=== PATIENT | female | born 1960 | race Hispanic/Latino ===

== ENCOUNTER → 2018-09-27 | Outpatient (CLI) | payer OTHER | END | disposition home or self-care (01) | LOC: RAH 13:26 | PROVIDERS: ATTEND Nurse Practitioner Adult Health | DX: Z13.6 Encounter for screening for cardiovascular disorders (principal) | CPT/HCPCS: 75571 ==

== ENCOUNTER → 2023-01-12 | Outpatient (CLI) | payer OTHER | END | disposition home or self-care (01) | LOC: RAH 09:59 | PROVIDERS: ATTEND Nurse Practitioner Adult Health | DX: Z13.6 Encounter for screening for cardiovascular disorders (principal) | CPT/HCPCS: 75571 ==

== ENCOUNTER 2024-11-16 21:52 | Emergency (ER) | payer OTHER ==
[~2024-11-16] VITALS: Ht 162.6 cm; Wt 70.3 kg
--- NOTE | 2024-11-16 21:57 | NUR ---
CALLED FOR EKG
--- NOTE | 2024-11-16 21:57 | NUR ---
UA CIP PROVIDED
[2024-11-16 22:45] LABS: BASOPHILS # (AUTO) 0.05 K/uL (0.00-0.20); BASOPHILS % (AUTO) 0.5 % (0.0-5.0); EOSINOPHILS # (AUTO) 0.06 K/uL (0.00-0.70); EOSINOPHILS % (AUTO) 0.6 % (0.0-8.0); HEMATOCRIT 36.5 % (36-48); IMMATURE GRANULOCYTE ABSOLUTE 0.04 K/uL (0-1); LYMPHOCYTES # (AUTO) 1.9 K/uL (1.0-4.8); LYMPHOCYTES % (AUTO) 19.9 % (21.0-51.0); MEAN CORPUSCULAR HEMOGLOBIN 31.9 pg (27.0-33.0); MEAN CORPUSCULAR HGB CONC 34.5 g/dL (32.0-36.0); MEAN CORPUSCULAR VOLUME 92.4 fL (79-99); MONOCYTES # (AUTO) 0.9 K/uL (0.1-1.0); MONOCYTES % (AUTO) 9.4 % (3.0-13.0); NEUTROPHILS # (AUTO) 6.5 K/uL (1.8-7.7); NEUTROPHILS % (AUTO) 69.2 % (40.0-77.0); PLATELET COUNT (AUTO) 357 K/uL (130-400); RED BLOOD CELL COUNT(AUTO) 3.95 MIL/uL (4.00-5.50); RED CELL DISTRIBUTION WIDTH 14.6 % (11.0-15.5); WHITE BLOOD COUNT (AUTO) 9.4 K/uL (4.8-10.8)
[2024-11-16 22:49] LABS: ADD UA MICROSCOPIC YES; APPEARANCE,URINE CLEAR (CLEAR); BILIRUBIN,URINE NEGATIVE (NEGATIVE); COLOR,URINE LIGHT-YELLOW (YELLOW); GLUCOSE, URINE (UA) NEGATIVE (NEGATIVE); KETONES,URINE NEGATIVE (NEGATIVE); LEUKOCYTE ESTERASE ,URINE 500 Leu/uL (NEGATIVE); NITRATE,URINE NEGATIVE (NEGATIVE); OCCULT BLOOD,URINE NEGATIVE (NEGATIVE); PROTEIN,URINE NEGATIVE (NEGATIVE)
[2024-11-16 22:51] LABS: SQUAMOUS EPITHELIAL CELL,UR RARE /HPF (0-2)
[2024-11-16 22:58] LABS: CREATININE 0.9 mg/dL (0.5-1.0); POTASSIUM 3.1 mmol/L (3.5-5.1)
--- NOTE | 2024-11-16 23:10 | ERN ---
General Chief Complaint: Shortness of Breath Stated Complaint: SOB Time Seen by MD: 21:55 Source: patient, family History of Present Illness Initial Comments Patient is a 63-year-old female with numerous complaints the major one however is heart palpitations that have been starting over the last several months and increasing in frequency. When she has these palpations she is weak dizzy can not even walk can not even stand up. Currently she is in normal sinus rhythm and fine. Additional symptoms associated with these attacks are blurry vision emesis and headache. She went to see her primary care doctor who diagnosed her with SVT and recommended she come to the ED. Allergies: Coded Allergies: No Known Allergies (Unverified Allergy, Unknown, 11/16/24) Past Medical History Past Medical History: High Cholesterol, Other Medical History Other: POOR HISTORIAN Past Surgical History: Other Surgical History Other: TUMMY TUCK Constitutional: (+) weakness EENTM: (+) blurred vision Cardiovascular: (+) palpitations Gastrointestinal/Abdominal: (+) nausea, (+) vomiting Musculoskeletal: (+) Neck pain, (+) back pain Neuro: (+) headache Physical Exam General Appearance: (+) mild distress Orientation: (+) alert Eye: bilateral eye normal inspection, bilateral eye PERRL, bilateral eye EOMI Ear, Nose, Throat: (+) hearing grossly normal, (+) normal ENT inspection, (+) moist mucous membraine, (+) normal pharynx Neck: (+) normal inspection, (+) supple, (+) tender Respiratory: (+) chest non-tender, (+) lungs clear, (+) well ventilated Respiratory Comment Left lower lobe posterior decreased breath sounds. Heart: (+) regular, (+) no gallop Vascular: (+) no edema, (+) normal peripheral pulse Gastrointestinal: (+) soft, (+) non-tender Gastrointestinal Comment Patient has been experiencing nausea and emesis and she says she has abdominal pain physical exam shows point tenderness on right lateral border of right rectus sheath Results Laboratory and Microbiology Lab and Micro Result Laboratory Tests Test 11/16/24 22:37 White Blood Count 9.4 K/uL (4.8-10.8) Red Blood Count 3.95 MIL/uL (4.00-5.50) L Hemoglobin 12.6 g/dL (12.0-16.0) Hematocrit 36.5 % (36-48) Mean Corpuscular Volume 92.4 fL (79-99) Mean Corpuscular Hemoglobin 31.9 pg (27.0-33.0) Mean Corpuscular Hemoglobin Concent 34.5 g/dL (32.0-36.0) Red Cell Distribution Width 14.6 % (11.0-15.5) Platelet Count 357 K/uL (130-400) Mean Platelet Volume 9.5 fL (7.5-10.5) Immature Granulocyte % (Auto) 0.4 % (0-1) Neutrophils (%) (Auto) 69.2 % (40.0-77.0) Lymphocytes (%) (Auto) 19.9 % (21.0-51.0) L Monocytes (%) (Auto) 9.4 % (3.0-13.0) Eosinophils (%) (Auto) 0.6 % (0.0-8.0) Basophils (%) (Auto) 0.5 % (0.0-5.0) Neutrophils # (Auto) 6.5 K/uL (1.8-7.7) Lymphocytes # (Auto) 1.9 K/uL (1.0-4.8) Monocytes # (Auto) 0.9 K/uL (0.1-1.0) Eosinophils # (Auto) 0.06 K/uL (0.00-0.70) Basophils # (Auto) 0.05 K/uL (0.00-0.20) Absolute Immature Granulocyte (auto 0.04 K/uL (0-1) Nucleated Red Blood Cells 0.0 % (0.0-0.19) Urine Color LIGHT-YELLOW (YELLOW) Urine Appearance CLEAR (CLEAR) Urine pH 7.0 (5.0-8.0) Urine Specific Stanley 1.015 (1.001-1.031) Urine Protein NEGATIVE mg/dL (NEGATIVE) Urine Glucose (UA) NEGATIVE mg/dL (NEGATIVE) Urine Ketones NEGATIVE mg/dL (NEGATIVE) Urine Occult Blood NEGATIVE (NEGATIVE) Urine Nitrate NEGATIVE (NEGATIVE) Urine Bilirubin NEGATIVE mg/dL (NEGATIVE) Urine Urobilinogen 2.0 mg/dL (0.2-1.0) H Urine Leukocyte Esterase 500 Marlene/uL (NEGATIVE) H Urine RBC 2-5 /HPF (0-1) H Urine WBC 6-10 /HPF (0-1) H Urine Squamous Epithelial Cells RARE /HPF (0-2) Urine Bacteria None /HPF (None Seen) Sodium Level 141 mmol/L (136-145) Potassium Level 3.1 mmol/L (3.5-5.1) L Chloride Level 101 mmol/L (101-111) Carbon Dioxide Level 30 mmol/L (21-32) Blood Urea Nitrogen 15 mg/dL (7-18) Creatinine 0.9 mg/dL (0.5-1.0) Glomerular Filtration Rate Calc 71 mL/min (>90) Random Glucose 118 mg/dL (70-105) H Total Calcium 9.2 mg/dL (8.5-10.1) Total Creatine Kinase 144 U/L (21-232) Troponin I High Sensitivity < 4 ng/L (4-50) L B-Type Natriuretic Peptide 8 pg/mL (0-100) MDM The usual labs have been ordered for shortness of breath and cardiac disease including troponins EKGs BNP is CBC chemistry panel a UA. I will add a chest x- ray. All laboratory studies and the chest x-ray are normal as well as EKG showing normal sinus rhythm with no ischemic changes. I will order a TSH level and give the patient a fluid bolus. After talking to the patient, she told me that her palpitations were diagnosed with a Holter monitor. She has an upcoming appointment in December to try medication management or possible ablation. I told the pt all her tests were normal. She was happy and would like to go home. I inquired about thyroid testing and her daughter told her it was normal. I have cancelled the TSH test and he IVF and will D/C the patient. ED Course Orders Procedure Category Date Status Time Vital Signs Per CPOE 11/16/24 Transmitted Routine 21:55 B-Type Natriuretic LAB 11/16/24 Complete Peptide 21:55 Chest 1vw RAD 11/16/24 Taken 21:55 12 Lead Ekg Tracing- EKG 11/16/24 Logged Technical 21:55 Oxygen By Nc/Pulse Ox CPOE 11/16/24 Transmitted 21:55 Maintain Iv CPOE 11/16/24 Transmitted 21:55 Iv Insertion CPOE 11/16/24 Transmitted 21:55 Cardiac Monitoring CPOE 11/16/24 Transmitted 21:55 Pulse Oximetry With CPOE 11/16/24 Transmitted Vs And Prn 21:55 Cbc With Differential LAB 11/16/24 Complete 21:55 Activity: Br W/Brp CPOE 11/16/24 Transmitted With Assist 21:55 Creatine Kinase, Total LAB 11/16/24 Complete 21:55 Troponin I High LAB 11/16/24 Complete Sensitivity 21:55 Urinalysis Profile LAB 11/16/24 Complete 21:55 Basic Metabolic Panel LAB 11/16/24 Complete 21:55 Culture Urine RENETTA 11/16/24 In Process 22:49 0.9%Nacl 1000ml (Ns PHA 11/17/24 Complete 1000ml) 00:30 Potassium Chl 10% PHA 11/17/24 Verified Elixir 20meq (Kcl 10% 01:00 Current Medications Medications (Trade) Dose Ordered Sig/Ac Route PRN Reason Start Time Stop Time Status Last Admin Dose Admin Sodium Chloride 1,000 ml @ 0 mls/hr ONCE ONCE IV 11/17/24 00:30 11/17/24 00:34 DC Vital Signs Date Time Temp Pulse Resp B/P (MAP) Pulse Ox O2 Delivery O2 Flow Rate FiO2 11/16/24 22:26 97.5 79 28 125/84 98 Room Air* 0 21 11/16/24 21:54 97.9 87 16 150/81 100 Room Air DX & DISP Disposition: Discharge Departure Impression: Primary Impression: SVT (supraventricular tachycardia) Condition: Stable Referrals: LAURITA CEDILLO [employer] (PCP) MARIELLE FELICIANO MD Nov 16, 2024 23:10
[2024-11-16 23:20] LABS: B-TYPE NATRIURETIC PEPTIDE 8 pg/mL (0-100)
[2024-11-17] MEDS ORDERED: 0.9%NACL 1000ML 1,000 ML IV ONE (00:30)
[2024-11-17] MEDS: 0.9%NACL 1000ML 1,000 ML IV SCH (01:43)
[2024-11-17] MEDS: PoTASSium chl 10% ELIXIR 20MEQ 20 MEQ/15 ML UDCUP PO ONE (01:43)
[2024-11-17 02:45] VITALS: BP 126/75; PULSE 73; RESP 14; TEMP 98.1; O2SAT 96
--- NOTE | 2024-11-17 08:25 | HMCIMG ---
PORTABLE CHEST RADIOGRAPH INDICATION: CHEST PAIN COMPARISON: None FINDINGS: Heart size is normal. The pulmonary vascularity and flip appear normal. No abnormal pulmonary parenchymal opacity or consolidation identified. Left hemidiaphragm is slightly elevated. No significant pleural effusion noted. No pneumothorax detected. IMPRESSION: No radiographic evidence for any acute cardiopulmonary process.
--- NOTE | 2024-11-17 09:04 | EKG ---
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
== END 2024-11-17 02:48 | disposition home or self-care (01) ==
LOC: EDH 21:52
DX: I47.10 Supraventricular tachycardia, unspecified (principal); E78.00 Pure hypercholesterolemia, unspecified; Z79.899 Other long term (current) drug therapy; Z98.890 Other specified postprocedural states
CPT/HCPCS: 99285; 71045; 84443; 82550; 84484; 80048; 83880; 85025; 87086; 81001; 36415 ×2; 93005; 96360; J7030

== ENCOUNTER 2025-05-28 11:52 | Day surgery (SDC) | payer OTHER ==
[2025-05-24 08:53] VITALS: BP 117/59; PULSE 73; RESP 14; TEMP 97.7
[2025-05-24 08:59] LABS: IMMATURE GRANULOCYTE ABSOLUTE 0.08 K/uL (0-1); NUCLEATED RED BLOOD CELLS 0.0 % (0.0-0.19); PLATELET COUNT (AUTO) 384 K/uL (130-400); RED BLOOD CELL COUNT(AUTO) 3.86 MIL/uL (4.00-5.50); RED CELL DISTRIBUTION WIDTH 14.6 % (11.0-15.5); WHITE BLOOD COUNT (AUTO) 6.7 K/uL (4.8-10.8)
[2025-05-24 09:07] LABS: CREATININE 0.8 mg/dL (0.5-1.0); GLOMERULAR FILTR. RATE CALC 81.0 mL/min (>90); GLUCOSE,RANDOM 67.0 mg/dL (70-105); SODIUM SERUM 139.0 mmol/L (136-145); UREA NITROGEN, BLOOD 17.0 mg/dL (7-18)
[2025-05-24 09:10] LABS: INR 1.04 (0.85-1.15)
[~2025-05-28] VITALS: Ht 162.6 cm; Wt 65.6 kg
[2025-05-28] VITALS (7 sets, daily range): BP systolic 105–119; BP diastolic 58–73; PULSE 82–91; RESP 14–17; TEMP 97.3–98.2
[~2025-05-28 11:52] MED LIST: ATOR10 PO; CHOL200074 PO; DILT120C78 PO; DILT240T13 PO; FOLI1 PO; HYDR12.54 PO; METH2.5T6 PO; TOFA11TA PO
[2025-05-28] MEDS ORDERED: HEParin-NS 1,000 UNIT/500 ML 1,000 ML IV ONE (14:15)
[2025-05-28] MEDS ORDERED: SODIUM BICARB 50MEQ 50ML VIAL 50 ML ONE (14:15)
[2025-05-28] MEDS ORDERED: LIDOCAINE HCL 400MG/20ML VIAL ONE (14:15)
--- NOTE | 2025-05-28 14:30 | NUR ---
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 Reported off in full to CHRISTIAN Conway
[2025-05-28] MEDS ORDERED: MIDAZOLAM HCL 1 MG/ML 2ML VIAL ONE (14:48)
[2025-05-28] MEDS ORDERED: ISOPROTERENOL HCL 0.2 MG/ML AMP/VIAL/BAG ONE (15:24)
--- NOTE | 2025-05-28 19:10 | NUR ---
PT AND FAMILY AT BEDSIDE GIVEN VERBAL AND WRITTEN DISCHARGE INSTRUCTIONS IV REMOVED SITE ASYMPTOMATIC. RIGHT GROIN SOFT ASYMPTOMATIC. PT TAKEN OUT VIA WHEELCHAIR SPOUSE DRIVING
== END 2025-05-28 19:18 | disposition home or self-care (01) ==
LOC: DAH 11:52
PROVIDERS: ATTEND Internal Medicine Cardiovascular Disease
DX: I47.10 Supraventricular tachycardia, unspecified (principal); M06.9 Rheumatoid arthritis, unspecified; E78.5 Hyperlipidemia, unspecified; Z90.710 Acquired absence of both cervix and uterus; Z79.01 Long term (current) use of anticoagulants; Z82.49 Family history of ischemic heart disease and other diseases of the circulatory system; Z83.3 Family history of diabetes mellitus; Z88.8 Allergy status to other drugs, medicaments and biological substances; Z79.899 Other long term (current) drug therapy; Z98.890 Other specified postprocedural states
CPT/HCPCS: 80048; 85025; 85610; 85730; 36415 ×2; 93623; 93653; 99156; 99157 ×6; 85347; A4223 ×3; C1894 ×3; C1732 ×3; C1730 ×2; A4649 ×2; C1760 ×3; J3010 ×2; J3490 ×3; J1644 ×2; J2250; A4215; A4222; A4221; A4663; A4216; A4606